=== PATIENT | female | born 1985 | race Caucasian/White ===

== ENCOUNTER 2016-11-22 09:27 | Day surgery (SDC) | payer OTHER ==
[2016-11-17 13:31] VITALS: BMI 39.5
[~2016-11-22 09:27] MED LIST: LACTATED RINGERS 1,000 ML IV SCH; LIDOCAINE 1% 20 ML VIAL (10MG/ML) FOR IV START INTRADERMA PRN
[2016-11-22 10:49] VITALS: RESP 16; TEMP 97.9
[2016-11-22] MEDS ORDERED: PROPOFOL 10 MG/ML 20 ML VIAL IV ONE (10:56)
[2016-11-22] MEDS ORDERED: LIDOCAINE 1% INJ 10MG/ML (20 ML MDV) ONE (10:56)
--- NOTE | 2016-11-22 11:14 | P.PCN ---
Date of Procedure: 11/22/16 Procedure(s) Performed: BRIEF HISTORY: Patient is a 31-year-old pleasant white female, scheduled for an elective colonoscopy as a part of evaluation of left lower quadrant abdominal pain and intermittent diarrhea for the last several months duration. PROCEDURE PERFORMED: Colonoscopy with biopsy. PREOPERATIVE DIAGNOSIS: Left lower Quadrant abdominal pain and intermittent diarrhea. IV sedation per Anesthesia. PROCEDURE: After informed consent was obtained, the patient, was brought into the endoscopy unit. IV conscious sedation was administered by Anesthesia under continuous monitoring. Initially the Olympus CF-160 flexible video colonoscope was then inserted in the rectum, gradually advanced into the cecum without any difficulty. Careful examination was performed as the scope was gradually being withdrawn. Ileocecal valve and the appendiceal orifice were visualized and appeared normal. Prep was excellent. Mucosa of the cecum, ascending colon, transverse colon, descending colon, sigmoid colon, and rectum appeared normal. Random biopsies were done from the deep any colon to rule out Antolin scope/ collagenous colitis. Retroflexion was performed in the rectum and no lesions were seen. The patient tolerated the procedure well. IMPRESSION: Normal-appearing colon from rectum to cecum with no evidence of colitis or colorectal neoplasia. RECOMMENDATIONS: Findings of this examination were discussed with the patient as well as a family. She was advised to follow with the biopsy results. Her symptoms are suggestive of irritable bowel syndrome and she was advised to use [id number] Imodium as needed when she has the diarrhea.
[2016-11-22 11:53] VITALS: BP 137/83; PULSE 62
--- NOTE | 2016-11-28 08:10 | CDI ---
Per your operative report "IV conscious sedation was administered by Anesthesia under continuous monitoring. Anesthesia Form indicates the method was unconscious sedation/General anesthesia. Per new CMS ([employer] for Medicare and Medicaid Services) guidelines there is a change by which the work of moderate/conscious sedation will be reimbursed separately. Further clarification regarding the type of anesthesia given is needed for proper reporting purposes. Please clarify the type of sedation this patient received during the cardiac catheterization. Moderate/conscious sedation MAC (unconscious sedation) General Anesthesia Other (please specify) Please document your findings in an addendum to the Procedure Note. If you have any questions about this query, you may contact [employer], Inessa Madison at between 8am and 6pm Sunday-Sunday Thank you for your time. KAILEY Browning
== END 2016-11-22 12:01 | disposition home or self-care (01) ==
LOC: ORWHC2ENDO 09:27
PROVIDERS: ATTEND Internal Medicine Gastroenterology
DX: R10.32 Left lower quadrant pain (principal); R19.7 Diarrhea, unspecified; R19.4 Change in bowel habit; E66.01 Morbid (severe) obesity due to excess calories; Z98.84 Bariatric surgery status; Z79.3 Long term (current) use of hormonal contraceptives; Z79.891 Long term (current) use of opiate analgesic; Z88.5 Allergy status to narcotic agent; Z88.2 Allergy status to sulfonamides
CPT/HCPCS: 81025; 88305; 45380; J2001; J2704

== ENCOUNTER → 2017-07-30 | Outpatient (CLI) | payer OTHER ==
--- NOTE | 2017-07-30 16:15 | MR ---
EXAMINATION TYPE: MR martines wo con DATE OF EXAM: 07/30/2017 2:05 PM COMPARISON: NONE HISTORY: Low back pain, neck pain Multiplanar MultiSpin echo imaging of the cervical spine was performed. Comparison: none C2-C3: No evidence for degenerative disc disease. No disc bulge/herniation or protrusion. No Canal stenosis. Foramina are patent bilaterally. C3-C4: No evidence for degenerative disc disease. No disc bulge/herniation or protrusion. No Canal stenosis. Foramina are patent bilaterally. C4-C5: There is evidence of mild disc desiccation. Mild posterior disc bulge. Minimal effacement vent ral thecal sac. Right foraminal encroachment identified. No evidence for central stenosis. C5-C6: There is evidence of mild disc desiccation. Mild posterior disc bulge. Minimal effacement vent ral thecal sac. Right foraminal encroachment identified. No evidence for central stenosis. C6-C7: No evidence for degenerative disc disease. No disc bulge/herniation or protrusion. No Canal stenosis. Foramina are patent bilaterally. C7-T1: No evidence for degenerative disc disease. No disc bulge/herniation or protrusion. No Canal stenosis. Foramina are patent bilaterally. Cervical segments are intact. There is normal alignment. Cervical spinal cord is of normal signal. Craniovertebral junction relationships are within normal limits. IMPRESSION: 1. Mild degenerative disc disease with disc bulging and right foraminal encroachment at C4-5 and C5-6 . EXAMINATION TYPE: MR conrad colon con DATE OF EXAM: 07/30/2017 2:05 PM COMPARISON: 10/01/2013 HISTORY: Low back pain, neck pain Multiplanar, MultiSpin echo imaging of the lumbar spine was performed. L1-L2: Normal disc appearance without desiccation. No herniation, protrusion or disc bulging. No ca nal stenosis is present. Foramina are patent bilaterally. L2-L3: Normal disc appearance without desiccation. No herniation, protrusion or disc bulging. No ca nal stenosis is present. Foramina are patent bilaterally. L3-L4: Mild to moderate disc desiccation. Broad-based posterior disc bulge with annular tear. Mild ef facement ventral thecal sac. No evidence for central stenosis. L4-L5: Normal disc appearance without desiccation. No herniation, protrusion or disc bulging. No ca nal stenosis is present. Foramina are patent bilaterally. L5-S1: Moderate disc desiccation noted. Persistent but much improved left paracentral disc herniation with mild left lateral recess stenosis. No evidence for central stenosis. Neural foramina are patent bilaterally. Lumbar segments are intact. No paraspinal masses are identified. Conus medullaris has a normal appe arance. IMPRESSION: 1. Persistent but much improved left paracentral disc herniation with mild left lateral recess stenos is at L5-S1. 2. Broad-based posterior disc bulge with annular tear at L3-4 stable.
== END | disposition home or self-care (01) ==
LOC: RADMRIMAIN 13:09
PROVIDERS: ATTEND Nurse Practitioner Acute Care
DX: M50.221 Other cervical disc displacement at C4-C5 level (principal); M50.30 Other cervical disc degeneration, unspecified cervical region; M51.27 Other intervertebral disc displacement, lumbosacral region; M48.07 Spinal stenosis, lumbosacral region; Z88.1 Allergy status to other antibiotic agents; Z88.5 Allergy status to narcotic agent; Z88.8 Allergy status to other drugs, medicaments and biological substances
CPT/HCPCS: 72141; 72148

== ENCOUNTER 2020-04-19 21:21 | Emergency (ER) | payer OTHER ==
[2020-04-19 21:32] VITALS: TEMP 98.9
[2020-04-19 22:41] LABS: Basophils % (A) 0 %; Eosinophils # (A) 0.1 k/uL (0-0.7); Eosinophils % (A) 1 %; HCT 37.4 % (34.0-46.0); HGB 11.9 gm/dL (11.4-16.0); Hypochromasia Slight; Lymphocytes # (A) 1.3 k/uL (1.0-4.8); Lymphocytes % (A) 13 %; MCH 27.7 pg (25.0-35.0); MCHC 31.7 g/dL (31.0-37.0); MCV 87.6 fL (80.0-100.0); Mean Platelet Volume 9.2; Monocytes # (A) 0.4 k/uL (0-1.0); Monocytes % (A) 4 %; Neutrophils # (A) 8.1 k/uL (1.3-7.7); Neutrophils % (A) 81 %; Platelet Count 245 k/uL (150-450); RBC 4.27 m/uL (3.80-5.40); RDW 14.6 % (11.5-15.5)
[2020-04-19 22:42] VITALS: RESP 18
[2020-04-19 22:52] LABS: ALT 13 U/L (4-34); AST 20 U/L (14-36); African American GFR (CKD) >90 (>60 ml/min/1.73 sqM); Albumin 3.9 g/dL (3.5-5.0); Alkaline Phosphatase 62 U/L (38-126); Anion Gap 7 mmol/L; Blood Urea Nitrogen 13 mg/dL (7-17); Calcium 9.6 mg/dL (8.4-10.2); Carbon Dioxide 21 mmol/L (22-30); Chloride 110 mmol/L (98-107); Glucose 81 mg/dL (74-99); Lipase 166 U/L (23-300); Magnesium 1.9 mg/dL (1.6-2.3); Non-African American GFR(CKD) >90 (>60 ml/min/1.73 sqM); Potassium 3.9 mmol/L (3.5-5.1); Sodium 138 mmol/L (137-145); Total Bilirubin 0.5 mg/dL (0.2-1.3); Total Protein 6.3 g/dL (6.3-8.2)
--- NOTE | 2020-04-19 22:53 | XR ---
EXAMINATION TYPE: XR chest 2V DATE OF EXAM: 04/19/2020 COMPARISON: 07/23/2014 HISTORY: Tachycardia TECHNIQUE: 2 views FINDINGS: Heart and mediastinum are normal. Lungs are clear. Diaphragm is normal. Bony thorax appears normal. IMPRESSION: Normal chest. No change.
[2020-04-19 22:54] LABS: Prothrombin Time 10.1 sec (9.0-12.0)
[2020-04-19 23:06] LABS: D-Dimer 1.28 mg/L FEU (<0.60)
--- NOTE | 2020-04-19 23:26 | ED ---
Chest Pain HPI - General Chief Complaint: Chest Pain Stated Complaint: Tightness in chest, SOB Time Seen by Provider: 04/19/20 22:09 Source: patient, RN notes reviewed Mode of arrival: wheelchair Limitations: no limitations - History of Present Illness Initial Comments: Is a 34-year-old female presents emergency Department chief complaint chest pain. Patient states symptoms started yesterday. Patient states she felt some other symptoms in which she states she had some left foot numbness and hand numbness which has resolved. She's had some intermittent complaints of shortness of breath but no symptoms currently. Denies any nausea vomiting diarrhea constipation no fever. Patient has no complaints of cough or sick contacts. Patient denies headache, dizziness. Patient denies any significant history of hypertension, hyperlipidemia, diabetes she is a nonsmoker. - Related Data Home Medications Medication Instructions Recorded Confirmed HYDROcodone/APAP 5-325MG [[place] 1 tab PO BID PRN 11/17/16 11/22/16 5-325] Medroxyprogesterone Acetate 150 mg IM ONCE 11/17/16 11/22/16 [Depo-Provera] Allergies Allergy/AdvReac Type Severity Reaction Status Date / Time hydromorphone HCl Allergy Nausea & Verified 04/19/20 21:32 [From Dilaudid] Vomiting & Diarrhea morphine Allergy Nausea & Verified 04/19/20 21:32 Vomiting & Diarrhea Sulfa (Sulfonamide Allergy Nausea & Verified 04/19/20 21:32 Antibiotics) Vomiting sulfamethoxazole Allergy Nausea & Verified 04/19/20 21:32 [From Bactrim] Vomiting trimethoprim [From Bactrim] Allergy Nausea & Verified 04/19/20 21:32 Vomiting aspirin AdvReac Nausea & Verified 04/19/20 21:32 Vomiting Review of Systems ROS Statement: Those systems with pertinent positive or pertinent negative responses have been documented in the HPI. ROS Other: All systems not noted in ROS Statement are negative. EKG Findings - EKG Comments: EKG Findings:: EKG performed at 21:45 sinus tachycardia rate of 11 KS 126 QRS 98 QT/QTC 326/422 Past Medical History Past Medical History: Asthma, GERD/Reflux, Musculoskeletal Disorder, Pneumonia, Rheumatoid Arthritis (RA), Syncope Additional Past Medical History / Comment(s): Hx pcos, herniated, disc disease, scoliosis, chronic kidney stones, hypoglycemia with fainting episodes, tachycardia. Hx Pneumonia 5 yrs ago. History of Any Multi-Drug Resistant Organisms: None Reported Past Surgical History: Cholecystectomy, Tonsillectomy Additional Past Surgical History / Comment(s): ovarian drilling, gastric bypass, tummy tuck Past Anesthesia/Blood Transfusion Reactions: Family History of Problems w/ Anesthesia, Motion Sickness, Postoperative Nausea & Vomiting (PONV) Additional Past Anesthesia/Blood Transfusion Reaction / Comment(s): Pt states she has diificulty waking up after anesthesia. Pt states has family members with PONV and difficulty waking up after as well. Past Psychological History: Anxiety, Depression Smoking Status: Never smoker Past Alcohol Use History: None Reported Past Drug Use History: None Reported - Past Family History Mother Family Medical History: No Reported History Father Family Medical History: Cancer Additional Family Medical History / Comment(s): Skin CA General Exam Limitations: no limitations General appearance: alert, in no apparent distress Head exam: Present: atraumatic, normocephalic, normal inspection Eye exam: Present: normal appearance, PERRL, EOMI. Absent: scleral icterus, conjunctival injection, periorbital swelling ENT exam: Present: normal exam, normal oropharynx, mucous membranes moist Neck exam: Present: normal inspection, full ROM. Absent: tenderness, meningismus, lymphadenopathy Respiratory exam: Present: normal lung sounds bilaterally. Absent: respiratory distress, wheezes, rales, rhonchi, stridor Cardiovascular Exam: Present: normal rhythm, tachycardia, normal heart sounds. Absent: systolic murmur, diastolic murmur, rubs, gallop, clicks GI/Abdominal exam: Present: soft, normal bowel sounds. Absent: distended, tenderness, guarding, rebound, rigid Back exam: Absent: CVA tenderness (R), CVA tenderness (L) Neurological exam: Present: alert, oriented X3 Skin exam: Present: warm, dry, intact, normal color. Absent: rash Course Vital Signs 04/19/20 04/19/20 21:30 22:41 Temperature 98.9 F Pulse Rate 117 H 85 Respiratory 20 18 Rate Blood Pressure 112/71 113/77 O2 Sat by Pulse 98 98 Oximetry Chest Pain MDM - MDM Patient's labs, EKG and chest x-ray are reviewed. Patient elevated d-dimer. Patient CT shows evidence of a reaction there is no evidence of pneumonia or evidence of PE. Patient we discharged the patient advised to take anti- inflammatories and return for any worsening symptoms. Disposition Clinical Impression: Atypical chest pain, Pleurisy Disposition: HOME SELF-CARE Condition: Stable Instructions (If sedation given, give patient instructions): Pleurisy (ED), Chest Pain (ED) Additional Instructions: Please return to the Emergency Department if symptoms worsen or any other concerns. Is patient prescribed a controlled substance at d/c from ED?: No Referrals: Henok Mora MD [Primary Care Provider] - 1-2 days Time of Disposition: 00:08
--- NOTE | 2020-04-19 23:55 | CT ---
EXAMINATION TYPE: CT chest angio for PE DATE OF EXAM: 04/19/2020 COMPARISON: 06/26/2015 HISTORY: SOB CT DLP: 735.9 mGycm Automated exposure control for dose reduction was used. CONTRAST: Performed with IV Contrast, patient injected with 85 mL of Isovue 370. Multiple axial sections were obtained from the thoracic inlet to the diaphragm with IV contrast and 3 -D post processed images. Heart size is normal. There is no pericardial effusion. There are no hilar masses. There is no medias tinal adenopathy. Thoracic aorta is intact. There is no aneurysm or dissection. There is normal contr ast opacification of the pulmonary arteries. There are no filling defects. There is 1 cm calcified gr anuloma at the right pulmonary hilum. There is no pleural effusion. Spleen is enlarged and measures 14.5 cm. There is cholecystectomy. Ther e is minimal pleural thickening in the left posterior midlung field. There is no evidence of a pulmon caitlyn mass. Thoracic spine is intact. There is no compression fracture. Sternum is intact. The ribs dileep ear intact. IMPRESSION: No evidence of pulmonary embolism. Minimal posterior left side pleural reaction is a change compared to old exam. Normal heart. There is splenomegaly unchanged compared to old exam.
[2020-04-20 00:07] VITALS: BP 130/80; PULSE 82
== END 2020-04-20 00:17 | disposition home or self-care (01) ==
LOC: EC 21:21
DX: R09.1 Pleurisy (principal); R07.89 Other chest pain; R06.02 Shortness of breath; Z88.5 Allergy status to narcotic agent; Z88.2 Allergy status to sulfonamides; Z88.1 Allergy status to other antibiotic agents; Z88.6 Allergy status to analgesic agent
CPT/HCPCS: 36415; 93005; 85379; 80053; 83690; 83735; 84484; 85025; 85610; 85730; 71046; 71275; 99285; Q9967

== ENCOUNTER → 2020-06-22 | Day surgery (SDC) | payer OTHER ==
[2020-06-21 11:59] VITALS: BMI 39.5
[~2020-06-22] MED LIST changes: +FAMOTIDINE 20 MG/2 ML VIAL IV ONE; +LIDOCAINE 1% (10MG/ML) FOR IV START INTRADERMA PRN; -LIDOCAINE 1% 20 ML VIAL (10MG/ML) FOR IV START INTRADERMA PRN; +MIDAZOLAM 2 MG/2 ML VIAL IV PRN; +PROPOFOL 10 MG/ML 20 ML VIAL IV ONE
[2020-06-22 11:53] VITALS: RESP 17; TEMP 98.1
--- NOTE | 2020-06-22 12:32 | P.PCN ---
Date of Procedure: 06/22/20 Description of Procedure: BRIEF HISTORY: Patient is a 34-year-old with history of IBS diarrhea predominant, Li-en-Y and iron deficiency anemia presents for outpatient EGD for evaluation of esophageal dysphagia. Patient has a history of esophageal stricture status post balloon dilation in 2010 last colonoscopy was in 2017. Previously on iron supplements for iron deficiency anemia. PROCEDURE PERFORMED: Esophagogastroduodenoscopywith biopsy. PREOPERATIVE DIAGNOSIS: esophageal dysphagia. ESTIMATED BLOOD LOSS: Minimal. IV sedation per anesthesia. PROCEDURE: After informed consent was obtained, the patient was brought into the endoscopy unit. IV sedation was administered by Anesthesia under continuous monitoring. Initially the Olympus GIF-190 video endoscope was inserted into the mouth. Esophagus intubated without any difficulty. It was gradually advanced into the gastric remnant, past the anastomotic site and into the small bowel. The small bowel appeared healthy and intact with biopsies of the small bowel/jejunum taken. The scope was then withdrawn to the anastomotic site which appeared intact. The gastric remnant was then examined and appeared normal with no erythema noted and biopsies of the gastric remnant team taken. The scope was then withdrawn to the GE junction located approximately 39 cm from the incisors and appeared normal. The entire examined esophagus appeared intact with no erosions, ulcerations or narrowings noted. Mid esophageal biopsies taken in the setting of symptoms of dysphagia to rule out eosinophilic esophagitis. The patient tolerated the procedure well. IMPRESSION: 1. Li-en-Y gastric bypass. 2. Biopsies taken of the small bowel/jejunum, gastric remnant and midesophagus. RECOMMENDATIONS: The findings of this examination were discussed with the patient and her mother. Okay to resume diet. Okay to resume medications. Continue trial of Bentyl therapy. Follow up in GI clinic as scheduled.
[2020-06-22 13:01] VITALS: BP 114/77; PULSE 70
== END ==
LOC: ORWHC2ENDO 11:21
PROVIDERS: ATTEND Internal Medicine
DX: K21.00 Gastro-esophageal reflux disease with esophagitis, without bleeding (principal); K29.50 Unspecified chronic gastritis without bleeding; J45.909 Unspecified asthma, uncomplicated; G47.33 Obstructive sleep apnea (adult) (pediatric); M19.90 Unspecified osteoarthritis, unspecified site; M06.9 Rheumatoid arthritis, unspecified; K58.0 Irritable bowel syndrome with diarrhea; Z88.5 Allergy status to narcotic agent; Z88.2 Allergy status to sulfonamides; Z88.6 Allergy status to analgesic agent; Z79.899 Other long term (current) drug therapy; Z79.891 Long term (current) use of opiate analgesic; Z98.84 Bariatric surgery status; Z90.49 Acquired absence of other specified parts of digestive tract; Z90.89 Acquired absence of other organs; Z98.890 Other specified postprocedural states; Z91.89 Other specified personal risk factors, not elsewhere classified; Z87.19 Personal history of other diseases of the digestive system; Z86.2 Personal history of diseases of the blood and blood-forming organs and certain disorders involving the immune mechanism
CPT/HCPCS: 81025; 88305; 43239; J2704

== ENCOUNTER → 2024-11-14 | Outpatient (CLI) | payer MEDICARE ==
--- NOTE | 2024-11-14 09:07 | MM ---
Reason for Exam: Screening (asymptomatic). Risk Values: Laisha 5 year model risk: 0.4%. NCI Lifetime model risk: 6.6%. Tissue Density: There are scattered areas of fibroglandular density. Findings: Analyzed By CAD. No significant mass, suspicious microcalcification, or other discrete abnormality is seen. Overall Assessment: Negative, BI-RAD 1 Management: Screening Mammogram of both breasts in 1 year. Patient should continue monthly self-breast exams. A clinical breast exam by your physician is recommended on an annual basis. This exam should not preclude additional follow-up of suspicious palpable abnormalities. Note on Laisha scores and lifetime risk: 1. A Laisha score greater than 3% is considered moderate risk. If this is the case, consider specialist referral to assess eligibility for a risk reducing agent. 2. If overall lifetime risk for the development of breast cancer is 20% or higher, the patient may qualify for future screening with alternating mammogram and breast MRI. [facility], , 11/14/2024 9:04 AM. Electronically signed and approved by: Zach Brennan M.D. Radiologist
== END | disposition home or self-care (01) ==
LOC: RADMAMWWP 08:28
PROVIDERS: ATTEND Family Medicine
DX: Z12.31 Encounter for screening mammogram for malignant neoplasm of breast (principal); R92.323 Mammographic fibroglandular density, bilateral breasts
CPT/HCPCS: 77067